=== PATIENT | male | born 1950 | race Caucasian/White ===

== ENCOUNTER → 2021-05-27 | Day surgery (SDC) | payer MEDICARE, BC ==
[2021-05-23 15:16] LABS: BASOPHILS # (AUTO) 0.1 X10'3 (0-0.2); EOSINOPHILS # (AUTO) 0.5 X10'3 (0-0.9); EOSINOPHILS % (AUTO) 6.7 % (0-6); LYMPHOCYTES # (AUTO) 3.1 X10'3 (1.1-4.8); LYMPHOCYTES % (AUTO) 41.6 % (21-51); MEAN CORPUSCULAR HEMOGLOBIN 30.5 PG (27.0-31.0); MEAN CORPUSCULAR HGB CONC 34.3 g/dL (33.0-36.5); MEAN CORPUSCULAR VOLUME 88.9 FL (78-98); MEAN PLATELET VOLUME 7.9 FL (7.4-10.4); MONOCYTES # (AUTO) 0.8 X10'3 (0-0.9); NEUTROPHILS # (AUTO) 3.1 X10'3 (1.8-7.7); NEUTROPHILS % (AUTO) 40.7 % (42-75); PRE OP HEMATOCRIT 40.7 % (42.0-52.0); PRE OP PLATELET COUNT 214 X10'3 (140-440); RED BLOOD COUNT 4.58 X10'6 (4.70-6.10); RED CELL DISTRIBUTION WIDTH 14.4 % (11.5-14.5)
[2021-05-23 15:28] LABS: ALBUMIN 3.8 G/DL (3.4-5.0); ALBUMIN/GLOBULIN RATIO 1.2 (1.1-1.5); ALKALINE PHOSPHATASE 64 IU/L (46-116); BLOOD UREA NITROGEN 20 MG/DL (7-18); BUN/CREATININE RATIO 19.8 (5.4-32.0); CALCIUM 8.4 MG/DL (8.5-10.1); CHLORIDE 108 MMOL/L (99-107); CREATININE 1.01 MG/DL (0.60-1.10); PRE OP ALT 19 U/L (30-65); PRE OP ANION GAP 11 (8-16); PRE OP AST 32 U/L (10-37); PRE OP BILIRUB, TOTAL 0.6 MG/DL (0.0-1.0); PRE OP GLUCOSE 121 MG/DL (70-104); PRE OP POTASSIUM 4.2 MMOL/L (3.4-5.1); PRE OP SODIUM 143 MMOL/L (135-145); TOTAL CARBON DIOXIDE 23.7 MMOL/L (24-32); TOTAL PROTEIN 6.9 G/DL (6.4-8.2); eGFR 73 ML/MIN
[~2021-05-27] VITALS: Ht 167.6 cm; Wt 83.9 kg
[~2021-05-27] MED LIST: ASPI-1071 PO; BUPIVAcaine/PF 2.5mg/ml (0.25%) 10ml vial ONE; CHOL100046 PO; CYAN-34 PO; DOCUMENT DATE & TIME OF BETA-BLOCKER PO ONE; ESOM20CA38 PO; LIDOcaine 0.5% (5mg/ml) 50ml vial ONE; METO-395 PO; ROSU20TA2 PO; UBID100C16 PO; acetaminophen 1,000mg/100ml IV 100 ML IV PRN; cefazolin/dext.iso 2gm/100ml IV ONE; famotidine 20mg tablet PO ONE; fentaNYL/PF 50MCG/1 ML 2ML syringe ONE; hydrALAZINE 20mg/ml inj. IV PRN; labetalol 20mg/4ml (5mg/ml) syringe IV PRN; meperidine/PF 25mg/ml syringe IV PRN; midazolam 1 mg/ML 2ml injection ONE; morphine 2 MG/ML inj. syringe IV PRN; morphine 4 MG/ML inj SYRINge IV PRN; ondansetron/PF 4mg/2ml inj IV PRN; proCHLORperazine 10 MG/2 ml inj IV PRN; propofol inj 20 ML IV ONE; ringers solution, lacted 1,000 ML IV SCH
[2021-05-27 12:19] VITALS: BP 116/77
--- NOTE | 2021-05-27 12:19 | NUR ---
Received from OR via [facility] , accompanied by Anesthesiologist LINDA and report given by Anesthesiolgist. PATIENT WITH 20G PIV IN LEFT UE RUNNING LR AT 100. DENIES PAIN RIGHT WRIST DRESSSING IS CDI AND HAS + CAP REFILL. FINGERS PWD, Addendum: 05/27/21 at 1225 by Omer Pascal RN, RN Amended: Links added.
[2021-05-27 12:20] VITALS: BP 135/87
[2021-05-27 12:30] VITALS: BP 134/79
--- NOTE | 2021-05-27 12:39 | NUR ---
ALL DISCHARGE CRITERIA HAS BEEN MET. VSS, PAIN AT A TOLERABLE LEVEL, VOIDING AND ABLE TO SAFELY AMBULATE AND TRANSFER SELF. IV TAKEN OUT WITHOUT ANY COMPLICATIONS. ALL DISCHARGE INSTRUCTIONS COVERED WITH PATIENT AND ALL QUESTIONS ANSWERED. PATIENT TAKEN OUT VIA WHEELCHAIR TO PERSONAL VEHICLE WHERE FAMILY/FRIEND DROVE PATIENT HOME. Addendum: 05/27/21 at 1314 by Omer Pascal RN, RN Amended: Links added.
--- NOTE | 2021-05-27 13:13 | NUR ---
REINSTRUCTED AND PATIENT AND AGREE THAT HE WEAR CPAP X24 HOURS UNLESS WALKING OR EATING. PATIENT AGREES TO COMPLY Addendum: 05/27/21 at 1314 by Omer Pascal RN, RN Amended: Links added.
== END | disposition home or self-care (01) ==
LOC: PAS 08:00
PROVIDERS: ATTEND Orthopaedic Surgery Hand Surgery
DX: G56.01 Carpal tunnel syndrome, right upper limb (principal); Z98.890 Other specified postprocedural states; Z95.5 Presence of coronary angioplasty implant and graft; G47.30 Sleep apnea, unspecified; Z79.82 Long term (current) use of aspirin; Z79.899 Other long term (current) drug therapy; Z72.89 Other problems related to lifestyle
CPT/HCPCS: 36415; 64721; 80053; 85025; J2001; J2250; J2704; J3010; J3490; Z7506; Z7512; A4215; A4615; J7120

== ENCOUNTER 2021-08-05 07:46 | Day surgery (SDC) | payer MEDICARE, BC ==
[2021-07-29 11:09] LABS: BASOPHILS % (AUTO) 0.5 % (0-1); EOSINOPHILS # (AUTO) 0.3 X10'3 (0-0.9); EOSINOPHILS % (AUTO) 5.1 % (0-6); LYMPHOCYTES # (AUTO) 2.4 X10'3 (1.1-4.8); LYMPHOCYTES % (AUTO) 35.9 % (21-51); MEAN CORPUSCULAR HEMOGLOBIN 30.5 PG (27.0-31.0); MEAN CORPUSCULAR HGB CONC 34.6 g/dL (33.0-36.5); MEAN CORPUSCULAR VOLUME 88.3 FL (78-98); MEAN PLATELET VOLUME 7.8 FL (7.4-10.4); MONOCYTES # (AUTO) 0.7 X10'3 (0-0.9); MONOCYTES % (AUTO) 10.3 % (2-12); NEUTROPHILS # (AUTO) 3.2 X10'3 (1.8-7.7); NEUTROPHILS % (AUTO) 48.2 % (42-75); PRE OP HEMATOCRIT 39.9 % (42.0-52.0); PRE OP HEMOGLOBIN 13.8 g/dL (14.0-17.9); PRE OP PLATELET COUNT 204 X10'3 (140-440); RED BLOOD COUNT 4.52 X10'6 (4.70-6.10); RED CELL DISTRIBUTION WIDTH 14.2 % (11.5-14.5)
[2021-07-29 11:27] LABS: ALBUMIN 3.8 G/DL (3.4-5.0); ALBUMIN/GLOBULIN RATIO 1.3 (1.1-1.5); ALKALINE PHOSPHATASE 72 IU/L (46-116); BLOOD UREA NITROGEN 17 MG/DL (7-18); BUN/CREATININE RATIO 16.3 (5.4-32.0); CALCIUM 8.5 MG/DL (8.5-10.1); CHLORIDE 109 MMOL/L (99-107); CREATININE 1.04 MG/DL (0.60-1.10); PRE OP ALT 22 U/L (30-65); PRE OP ANION GAP 10 (8-16); PRE OP AST 24 U/L (10-37); PRE OP BILIRUB, TOTAL 0.4 MG/DL (0.0-1.0); PRE OP GLUCOSE 104 MG/DL (70-104); PRE OP POTASSIUM 4.1 MMOL/L (3.4-5.1); PRE OP SODIUM 143 MMOL/L (135-145); TOTAL CARBON DIOXIDE 24.3 MMOL/L (24-32); TOTAL PROTEIN 6.8 G/DL (6.4-8.2); eGFR 71 ML/MIN
[2021-08-05] VITALS (16 sets, daily range): BP systolic 109–142; BP diastolic 72–97
[~2021-08-05] VITALS: Ht 167.6 cm; Wt 82.8 kg
[~2021-08-05 07:46] MED LIST changes: -BUPIVAcaine/PF 2.5mg/ml (0.25%) 10ml vial ONE; -acetaminophen 1,000mg/100ml IV 100 ML IV PRN; -cefazolin/dext.iso 2gm/100ml IV ONE; +cefazolin/dext.iso 2gm/50ml 50 ML IV ONE; -fentaNYL/PF 50MCG/1 ML 2ML syringe ONE; -hydrALAZINE 20mg/ml inj. IV PRN; -labetalol 20mg/4ml (5mg/ml) syringe IV PRN; -meperidine/PF 25mg/ml syringe IV PRN; -midazolam 1 mg/ML 2ml injection ONE; -morphine 2 MG/ML inj. syringe IV PRN; -morphine 4 MG/ML inj SYRINge IV PRN; -ondansetron/PF 4mg/2ml inj IV PRN; -proCHLORperazine 10 MG/2 ml inj IV PRN; -propofol inj 20 ML IV ONE
[2021-08-05] MEDS ORDERED: morphine 4 MG/ML inj SYRINge IV PRN (09:35)
[2021-08-05] MEDS ORDERED: morphine 2 MG/ML inj. syringe IV PRN (09:35)
[2021-08-05] MEDS ORDERED: labetalol 20mg/4ml (5mg/ml) syringe IV PRN (09:35)
[2021-08-05] MEDS ORDERED: ringers solution, lacted 1,000 ML IV SCH (09:35)
[2021-08-05] MEDS ORDERED: ondansetron/PF 4mg/2ml inj IV PRN (09:35)
[2021-08-05] MEDS ORDERED: fentaNYL/PF 50MCG/1 ML 2ML syringe IV PRN ×2 (09:35)
[2021-08-05] MEDS ORDERED: hydrALAZINE 20mg/ml inj. IV PRN (09:35)
[2021-08-05] MEDS ORDERED: fentaNYL/PF 50MCG/1 ML 2ML syringe ONE (10:25)
[2021-08-05] MEDS ORDERED: MIDAZolam 1 MG/ML 5ML VIAL ONE (10:26)
--- NOTE | 2021-08-05 11:09 | NUR ---
Received from OR via [facility] IN STABLE CONDITION , accompanied by Anesthesiologist and PERSONNEL SPECIALIST report given by PERSONNEL SPECIALIST Anesthesiguzman. Addendum: 08/05/21 at 1339 by Octavia Jeong RN Amended: Links added.
--- NOTE | 2021-08-05 11:09 | NUR ---
Received from OR via [facility] IN STABLE CONDTION , accompanied by Anesthesiologist and FOOD ORDER EXPEDITER report given by FOOD ORDER EXPEDITER AND Anesthesiolgist. Addendum: 08/05/21 at 1140 by Octavia Jeong RN Amended: Links added.
--- NOTE | 2021-08-05 13:39 | NUR ---
PATIENT DISCHARGED FROM PACU IN STABLE CONDITION AFTER WRITTEN AND VERBAL DISCHARGE INSTRUCTIONS GIVEN. PATIENT GAVE VERBAL UNDERSTANDING OF INSTRUCTIONS GIVEN. PATIENT LEFT FACILITY VIA WHEELCHAIR WITH VOLUNTEER. Addendum: 08/05/21 at 1348 by Octavia Jeong RN Amended: Links added.
== END 2021-08-05 13:39 | disposition home or self-care (01) ==
LOC: PAS 07:46
PROVIDERS: ATTEND Orthopaedic Surgery Hand Surgery
DX: G56.02 Carpal tunnel syndrome, left upper limb (principal); I10 Essential (primary) hypertension; I25.10 Atherosclerotic heart disease of native coronary artery without angina pectoris; I25.2 Old myocardial infarction; G47.30 Sleep apnea, unspecified; Z20.822 Contact with and (suspected) exposure to COVID-19; Z79.899 Other long term (current) drug therapy; Z79.82 Long term (current) use of aspirin; Z98.890 Other specified postprocedural states; Z72.89 Other problems related to lifestyle; Z95.5 Presence of coronary angioplasty implant and graft; Z82.49 Family history of ischemic heart disease and other diseases of the circulatory system
CPT/HCPCS: 36415; 64721; 80053; 82948; 85025; J2001; J2250; J3010; U0003; U0005; Z7506; Z7512; A4215; J7120